=== PATIENT | female | born 1995 | race Caucasian/White ===

== ENCOUNTER 2022-06-14 16:53 | Outpatient (REF) | payer OTHER, SELFPAY ==
--- NOTE | ~2022-06-14 | XR_ITS ---
EXAMINATION: XR ANKLE, RIGHT CLINICAL INFORMATION: Right ankle pain COMPARISON: None TECHNIQUE: AP, lateral, and mortise views of the right ankle. FINDINGS: No acute fracture or dislocation. Suspected small ankle joint effusion. Ankle mortise is congruent and intact. Soft tissue swelling overlying the lateral malleolus. Ankle and subtalar joint spaces are maintained. XR/XR ankle RT min 3V IMPRESSION: 1. No fracture or dislocation. 2. Ankle joint effusion and soft tissue swelling overlying the lateral malleolus.
== END 2022-06-14 16:54 | disposition home or self-care (01) ==
LOC: HO.HMGCX 16:53
PROVIDERS: Visit Provider Nurse Practitioner Family
DX: M25.571 Pain in right ankle and joints of right foot (principal)
CPT/HCPCS: 73610